=== PATIENT | male | born 1965 | race Caucasian/White ===

== ENCOUNTER 2019-05-12 23:30 | Emergency (ER) | payer MEDICARE, MEDICAID ==
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
[2019-05-13 03:50] VITALS: BP 144/85
[2019-05-13 04:11] VITALS: PULSE 100
== END 2019-05-13 00:45 ==
LOC: VM.ED 23:30
DX: R10.32 Left lower quadrant pain (principal); F32.9 Major depressive disorder, single episode, unspecified; Z79.899 Other long term (current) drug therapy; Z88.0 Allergy status to penicillin; Z88.8 Allergy status to other drugs, medicaments and biological substances
CPT/HCPCS: 81002; 99284-GF; 99285

== ENCOUNTER 2020-02-25 17:40 | Inpatient (IN) | payer MEDICARE, MEDICAID ==
--- NOTE | 2020-02-25 18:19 | EDM.PDOC ---
<Dwight Rivero W - Last Filed: 02/25/20 18:12> ED HPI GENERAL MEDICAL PROBLEM - General Chief Complaint: General Time Seen by Provider: 02/25/20 17:40 Source of Information: Reports: Patient History Limitations: Reports: No Limitations - History of Present Illness INITIAL COMMENTS - FREE TEXT/NARRATIVE: Pt. presents to ER via EMS. He is a resident at [facility] and is currently diagnosed with covid 19 on 02/20/2020 and has been on dexamethasone since that time. Staff states that the patient has gradually become more lethargic and weak since diagnosis. Today, patient was noted to have a HR of 142 and temp of 102.2. Resp rate was 40 and he was maintaining O2 sats of around 96% on O2 per NC at 2L/min. 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 He will nod affirmatively and negatively when asked questions. Pt. is a code 2. Onset Date: 02/20/20 Location: Reports: Generalized - Related Data Allergies Allergy/AdvReac Type Severity Reaction Status Date / Time Penicillins Allergy Cannot Verified 02/25/20 19:32 Remember phenytoin sodium Allergy Cannot Verified 02/25/20 19:32 [From Dilantin] Remember phenytoin sodium extended Allergy Cannot Verified 02/25/20 19:32 [From Dilantin] Remember Home Meds: Home Meds Beta-Carotene(A) w/C & E/Min [Prosight] 1 tab PO DAILY 09/14/13 [History] Desmopressin 0.3 mg PO DAILY 09/14/13 [History] Desmopressin 0.7 tab PO BEDTIME 09/14/13 [History] Docusate Sodium [Colace] 2 tab PO BEDTIME 09/14/13 [History] Melatonin 5 mg PO BEDTIME 09/14/13 [History] bisacodyL [Dulcolax] 5 mg PO DAILY PRN 04/12/14 [History] Bisacodyl [Dulcolax] 10 mg RECTAL DAILY PRN 03/16/16 [History] Memantine HCl [Namenda Xr] 28 mg PO DAILY 03/16/16 [History] Acetaminophen 650 mg PO Q4H PRN 02/25/20 [History] Albuterol/Ipratropium [DuoNeb 3.0-0.5 MG/3 ML] 3 ml INH Q3H PRN 02/25/20 [History] Apixaban [Eliquis] 1 tab PO BID 02/25/20 [History] Ascorbic Acid [Vitamin C] 1,000 mg PO BID 02/25/20 [History] Cholecalciferol (Vitamin D3) [Vitamin D] 1,000 unit PO DAILY 02/25/20 [History] dexAMETHasone [Dexamethasone] 6 mg PO DAILY 02/25/20 [History] polyethylene glycoL 3350 [MiraLAX] 17 gm PO DAILY 02/25/20 [History] Past Medical History HEENT History: Reports: Sinusitis, Other (See Below) 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 significant presenile demenia in addition to cognitive dysfunction Psychiatric History: Reports: Depression Endocrine/Metabolic History: Reports: Obesity/BMI 30+, Other (See Below) Other Endocrine/Metabolic History: diabetes insipidus Hematologic History: Reports: Other (See Below) Other Hematologic History: hyponatemia - Past Surgical History Musculoskeletal Surgical History: Reports: Other (See Below) Social & Family History - Living Situation & Occupation Living situation: Reports: Extended Care Facility ED ROS GENERAL - Review of Systems Review Of Systems: See Below Reason Not Obtained: largely unobtainable due to TBI. Constitutional: Reports: No Symptoms HEENT: Reports: No Symptoms Respiratory: Reports: Shortness of Breath, Cough Cardiovascular: Reports: No Symptoms ED EXAM, GENERAL - Physical Exam Exam: See Below Exam Limited By: No Limitations General Appearance: Alert, WD/WN, No Apparent Distress Throat/Mouth: Normal Inspection, Normal Lips, No Airway Compromise Departure - Departure Disposition: Refer to Observation Clinical Impression: COVID-19, Hypoxia, ARIANNA (acute kidney injury), Dehydration, Hypernatremia - Discharge Information <Corbin Garzon - Last Filed: 02/25/20 21:24> Course - Vital Signs Last Recorded V/S: Last Vital Signs Temp 98.8 F 02/25/20 20:28 Pulse 106 H 02/25/20 20:28 Resp 20 02/25/20 20:28 BP 113/54 L 02/25/20 20:28 Pulse Ox 96 02/25/20 20:28 - Orders/Labs/Meds Orders: Active Orders 24 hr Category Date Time Status CULTURE BLOOD [BC] Stat Lab 02/25/20 17:56 Received CULTURE BLOOD [BC] Stat Lab 02/25/20 18:10 Results PROCALCITONIN [REF] Stat Lab 02/25/20 17:56 Received Sodium Chloride 0.9% [Saline Flush] Med 02/25/20 17:53 Active 10 ml FLUSH ASDIRECTED PRN Blood Culture x2 Reflex Set [OM.PC] Stat Oth 02/25/20 17:54 Ordered Peripheral IV Insertion Adult [OM.PC] Routine Oth 02/25/20 17:54 Ordered Medication Orders Acetaminophen (Tylenol) 650 mg PO Q4H PRN PRN Reason: Pain (Mild 1-3)/fever Albuterol/Ipratropium (Duoneb 3.0-0.5 Mg/3 Ml) 3 ml NEB Q4H PRN PRN Reason: dyspnea/wheezing Albuterol/Ipratropium (Duoneb 3.0-0.5 Mg/3 Ml) 3 ml INH Q3H PRN PRN Reason: Shortness of Breath Apixaban (Eliquis) 2.5 mg PO BID GIN Bisacodyl (Dulcolax) 5 mg PO DAILY PRN PRN Reason: Constipation Bisacodyl (Dulcolax) 10 mg RECTAL DAILY PRN PRN Reason: Constipation Ceftriaxone Sodium (Rocephin) 1 gm IVPUSH Q24H GIN Cholecalciferol (Vitamin D3) 100 mcg PO DAILY GIN Desmopressin Acetate (Desmopressin) 0.3 mg PO DAILY GIN Desmopressin Acetate (Desmopressin) 0.7 mg PO BEDTIME GIN Dexamethasone (Dexamethasone) 6 mg PO DAILY GIN Docusate Sodium (Colace) 200 mg PO BEDTIME GIN Lactated Ringer's (Ringers, Lactated) 1,000 mls @ 150 mls/hr IV ASDIRECTED GIN Last Admin: 02/25/20 21:00 Dose: 150 mls/hr Documented by: KANNAN Remdesivir 200 mg/ Sodium (Chloride) 250 mls @ 250 mls/hr IV ONETIME ONE Stop: 02/25/20 22:59 Remdesivir 100 mg/ Sodium (Chloride) 100 mls @ 100 mls/hr IV Q24H GIN Stop: 02/29/20 22:59 Azithromycin 500 mg/ Sodium (Chloride) 250 mls @ 250 mls/hr IV Q24H GIN Multivitamins/Minerals (Prosight) 1 tab PO DAILY GIN Non-Formulary Medication (Melatonin [Melatonin]) 5 mg PO BEDTIME GIN Non-Formulary Medication (Memantine Hcl [Namenda Xr]) 28 mg PO DAILY GIN Polyethylene Glycol (Miralax) 17 gm PO DAILY [facility] Sodium Chloride (Saline Flush) 10 ml FLUSH ASDIRECTED PRN PRN Reason: Keep Vein Open Last Admin: 02/25/20 21:00 Dose: 10 ml Documented by: KANNAN Zinc Gluconate (Zinc) 50 mg PO DAILY [facility] Labs: Laboratory Tests 02/25/20 02/25/20 02/25/20 Range/Units 17:56 17:56 17:56 WBC 10.9 H (4.0-10.0) x10^3/uL RBC 6.03 H (4.5-6.0) x10^6/uL Hgb 17.1 D (14.0-18.0) g/dL Hct 54.1 H (40.0-52.0) % MCV 89.7 D (78.0-93.0) fL MCH 28.4 (26.0-32.0) pg MCHC 31.6 L (32.0-36.0) g/dL RDW Coeff of Efrain 17.9 H (10.0-15.0) % Plt Count 291 D (130-400) x10^3/uL Add Manual Diff Yes Neutrophils % (Manual) 64 (50-80) % Band Neutrophils % 1 (0-6) % Lymphocytes % (Manual) 12 L (25-50) % Monocytes % (Manual) 22 H (2-11) % Eosinophils % (Manual) 1 (0-4) % Platelet Estimate Adequate Anisocytosis 2+ moderate H PT 13.5 H (9.5-12.3) SEC INR 1.3 L (2.0-3.5) Sodium 160 H (136-145) mmol/L Potassium 4.6 (3.5-5.1) mmol/L Chloride 123 H (98-107) mmol/L Carbon Dioxide 27 (21-32) mmol/L Anion Gap 14.6 (10-20) mmol/L BUN 68 H D (7-18) mg/dL Creatinine 1.6 H (0.70-1.30) mg/dL Est Cr Clr Drug Dosing TNP Estimated GFR (MDRD) 45 Glucose 116 H (74-106) mg/dL Lactic Acid (0.4-2.0) mmol/L Calcium 8.8 (8.5-10.1) mg/dL Corrected Calcium 9.36 (8.5-10.1) mg/dL Ferritin (26-388) ng/mL Total Bilirubin 0.9 (0.2-1.0) mg/dL AST 87 H (15-37) U/L ALT 51 (16-63) U/L Alkaline Phosphatase 53 (46-116) U/L C-Reactive Protein 0.6 (<=0.9) mg/dL Total Protein 8.1 (6.4-8.2) g/dL Albumin 3.3 L (3.4-5.0) g/dL Globulin 4.8 Albumin/Globulin Ratio 0.69 TSH, Ultra Sensitive 3.033 (0.358-3.74) uIU/mL Urine Color (YELLOW) Urine Appearance (CLEAR) Urine pH (5.0-8.0) Ur Specific Zullinger Urine Protein (NEGATIVE) mg/dL Urine Glucose (UA) (NEGATIVE) mg/dL Urine Ketones (NEGATIVE) mg/dL Urine Occult Blood (NEGATIVE) Urine Nitrite (NEGATIVE) Urine Bilirubin (NEGATIVE) Urine Urobilinogen (0.2) EU/dL Ur Leukocyte Esterase (NEGATIVE) Urine RBC (NOT SEEN) /HPF Urine WBC (NOT SEEN) /HPF Ur Squamous Epith Cells (NEGATIVE) /HPF Amorphous Sediment Urine Bacteria (NEGATIVE) /HPF Urine Mucus (NEGATIVE) /LPF 02/25/20 02/25/20 02/25/20 Range/Units 17:56 17:56 18:13 WBC (4.0-10.0) x10^3/uL RBC (4.5-6.0) x10^6/uL Hgb (14.0-18.0) g/dL Hct (40.0-52.0) % MCV (78.0-93.0) fL MCH (26.0-32.0) pg MCHC (32.0-36.0) g/dL RDW Coeff of Efrain (10.0-15.0) % Plt Count (130-400) x10^3/uL Add Manual Diff Neutrophils % (Manual) (50-80) % Band Neutrophils % (0-6) % Lymphocytes % (Manual) (25-50) % Monocytes % (Manual) (2-11) % Eosinophils % (Manual) (0-4) % Platelet Estimate Anisocytosis PT (9.5-12.3) SEC INR (2.0-3.5) Sodium (136-145) mmol/L Potassium (3.5-5.1) mmol/L Chloride (98-107) mmol/L Carbon Dioxide (21-32) mmol/L Anion Gap (10-20) mmol/L BUN (7-18) mg/dL Creatinine (0.70-1.30) mg/dL Est Cr Clr Drug Dosing Estimated GFR (MDRD) Glucose (74-106) mg/dL Lactic Acid 2.0 (0.4-2.0) mmol/L Calcium (8.5-10.1) mg/dL Corrected Calcium (8.5-10.1) mg/dL Ferritin 402 H (26-388) ng/mL Total Bilirubin (0.2-1.0) mg/dL AST (15-37) U/L ALT (16-63) U/L Alkaline Phosphatase (46-116) U/L C-Reactive Protein (<=0.9) mg/dL Total Protein (6.4-8.2) g/dL Albumin (3.4-5.0) g/dL Globulin Albumin/Globulin Ratio TSH, Ultra Sensitive (0.358-3.74) uIU/mL Urine Color Dark yellow H (YELLOW) Urine Appearance Slightly cloudy H (CLEAR) Urine pH 5.5 (5.0-8.0) Ur Specific Zullinger >=1.030 Urine Protein >=300 H (NEGATIVE) mg/dL Urine Glucose (UA) Negative (NEGATIVE) mg/dL Urine Ketones Negative (NEGATIVE) mg/dL Urine Occult Blood Moderate H (NEGATIVE) Urine Nitrite Negative (NEGATIVE) Urine Bilirubin Negative (NEGATIVE) Urine Urobilinogen 1.0 (0.2) EU/dL Ur Leukocyte Esterase Negative (NEGATIVE) Urine RBC 20-30 H (NOT SEEN) /HPF Urine WBC 0-5 (NOT SEEN) /HPF Ur Squamous Epith Cells Not seen (NEGATIVE) /HPF Amorphous Sediment Few Urine Bacteria Occasional H (NEGATIVE) /HPF Urine Mucus Occasional H (NEGATIVE) /LPF Meds: Medications Generic Name Dose Route Start Last Admin Trade Name Freq PRN Reason Stop Dose Admin Acetaminophen 650 mg 02/25/20 20:28 Tylenol PO Q4H PRN Pain (Mild 1-3)/fever Albuterol/Ipratropium 3 ml 02/25/20 20:28 Duoneb 3.0-0.5 Mg/3 Ml NEB Q4H PRN dyspnea/wheezing Albuterol/Ipratropium 3 ml 02/25/20 20:49 Duoneb 3.0-0.5 Mg/3 Ml INH Q3H PRN Shortness of Breath Apixaban 2.5 mg 02/26/20 08:00 Eliquis PO BID GIN Bisacodyl 5 mg 02/25/20 20:49 Dulcolax PO DAILY PRN Constipation Bisacodyl 10 mg 02/25/20 20:49 Dulcolax RECTAL DAILY PRN Constipation Ceftriaxone Sodium 1 gm 02/26/20 20:00 Rocephin IVPUSH Q24H GIN Cholecalciferol 100 mcg 02/26/20 08:00 Vitamin D3 PO DAILY GIN Desmopressin Acetate 0.3 mg 02/26/20 08:00 Desmopressin PO DAILY GIN Desmopressin Acetate 0.7 mg 02/26/20 20:00 Desmopressin PO BEDTIME GIN Dexamethasone 6 mg 02/26/20 08:00 Dexamethasone PO DAILY GIN Docusate Sodium 200 mg 02/26/20 20:00 Colace PO BEDTIME GIN Lactated Ringer's 1,000 mls @ 150 mls/hr 02/25/20 20:45 02/25/20 21:00 Ringers, Lactated IV 150 mls/hr ASDIRECTED GIN Administration Remdesivir 200 mg/ Sodium 250 mls @ 250 mls/hr 02/25/20 22:00 Chloride IV 02/25/20 22:59 ONETIME ONE Remdesivir 100 mg/ Sodium 100 mls @ 100 mls/hr 02/26/20 22:00 Chloride IV 02/29/20 22:59 Q24H GIN Azithromycin 500 mg/ Sodium 250 mls @ 250 mls/hr 02/26/20 20:00 Chloride IV Q24H GIN Multivitamins/Minerals 1 tab 02/26/20 08:00 Prosight PO DAILY GIN Non-Formulary Medication 5 mg 02/26/20 20:00 Melatonin [Melatonin] PO BEDTIME GIN Non-Formulary Medication 28 mg 02/26/20 08:00 Memantine Hcl [Namenda Xr] PO DAILY IGN Polyethylene Glycol 17 gm 02/26/20 08:00 Miralax PO DAILY GIN Sodium Chloride 10 ml 02/25/20 17:53 02/25/20 21:00 Saline Flush FLUSH 10 ml ASDIRECTED PRN Administration Keep Vein Open Zinc Gluconate 50 mg 02/26/20 08:00 Zinc PO DAILY GIN Discontinued Medications Generic Name Dose Route Start Last Admin Trade Name Freq PRN Reason Stop Dose Admin Ceftriaxone Sodium 2 gm 02/25/20 18:44 02/25/20 19:14 Rocephin IVPUSH 02/25/20 18:45 2 gm STAT ONE Administration Azithromycin 500 mg/ Sodium 250 mls @ 250 mls/hr 02/25/20 18:45 02/25/20 19:14 Chloride IV 02/25/20 19:44 250 mls/hr STAT ONE Administration Sodium Chloride 1,000 mls @ 1,000 mls/hr 02/25/20 19:07 02/25/20 17:50 Normal Saline IV 02/25/20 20:06 1,000 mls/hr .BOLUS ONE Administration - Radiology Interpretation Free Text/Narrative:: Chest x-ray per radiology shows possible early scattered bilateral infiltrates. Mild cardiomegaly without evidence of edema. No effusions. - Re-Assessments/Exams Free Text/Narrative Re-Assessment/Exam: 02/25/20 20:13 Assumed care of this patient at shift change at 1900 hrs. His chest x-ray is concerning for the development of bilateral infiltrates. Blood cultures are pending. He is requiring 3 L of oxygen per nasal cannula which is not chronic for him. He was given a dose of Rocephin and azithromycin in the emergency department. His sodium is elevated at 160 and he has an elevation of his creatinine of 1.6 with a BUN of 68. His oral mucosa is quite dry. I think with his traumatic brain injury and his presence of Covid that he has not been taking good fluids. I do not feel that sending him back to the group home at this time is appropriate with the increasing oxygen demands and the worsening chest x-ray and the concern for most likely a secondary bacterial infection. I did talk with the patient's sister as well about my concern and she agrees. I also think with the increasing oxygen demands that he does meet criteria for remdesivir administration in the hospital. This is a 5-day course so I called and spoke with Dr. Allen about inpatient management of this patient with my concerns of ARIANNA COVID requiring oxygen and Remdisivir she feels that obs is appropriate at this time and contact his PCP in the morning about possibly switching to inpatient. I discussed this with the patient daughter and she is comfortable with this plan. I will talk with his PCP in the morning DR. Lauren about assuming care of the patient. I did discuss with the patient's sister about the administration of remdesivir. I spoke with the sister Charisse Schaeffer and provided information about remdesivir treatment for Rojas Kent. Offered them the patient and caregiver SAM [email or web address] factually to read and review which is she is not here I gave her guidance on line to find this as a reference for her at home. I stated that the drug is been approved by an emergency use authorization process and has not been fully FDA reviewed or approved. Patient meets the EUA requirements. I shared that the drug may cause liver abnormalities and infusion related side effects. Additionally other side effects are possible but not known as the drug has limited studies. I discussed there are other potential treatment options that are currently not FDA approved to treat COVID-19. I offered opportunity to ask questions and all questions were answered. Charisse Schaeffer verbally voiced an understanding and agreement to proceed with the treatment for Rojas Kent. Departure - Departure Time of Disposition: 20:30 Sepsis Event Note (ED) - Focused Exam Vital Signs: Vital Signs Temp Pulse Resp BP Pulse Ox 02/25/20 17:40 99.6 F 122 H 24 H 126/84 98 - Problem List & Annotations (1) ARIANNA (acute kidney injury) SNOMED Code(s): 31603935, 42969687 Code(s): N17.9 - ACUTE KIDNEY FAILURE, UNSPECIFIED Status: Acute Current Visit: Yes (2) COVID-19 SNOMED Code(s): 983440959 Code(s): U07.1 - COVID-19 Status: Acute Current Visit: Yes (3) Dehydration SNOMED Code(s): 50252884 Code(s): E86.0 - DEHYDRATION Status: Acute Current Visit: Yes (4) Hypernatremia SNOMED Code(s): 863767483 Code(s): E87.0 - HYPEROSMOLALITY AND HYPERNATREMIA Status: Acute Current Visit: Yes (5) Hypoxia SNOMED Code(s): 027551572 Code(s): R09.02 - HYPOXEMIA Status: Acute Current Visit: Yes (6) Pneumonia SNOMED Code(s): 000219559 Code(s): J18.9 - PNEUMONIA, UNSPECIFIED ORGANISM Status: Acute Current Visit: No Qualifiers: Pneumonia type: due to unspecified organism Laterality: right Lung location: unspecified part of lung Qualified Code(s): J18.9 - Pneumonia, unspecified organism - My Orders Last 24 Hours: My Active Orders 02/25/20 17:56 PROCALCITONIN [REF] Stat - Assessment/Plan Last 24 Hours: My Active Orders 02/25/20 17:56 PROCALCITONIN [REF] Stat Assessment:: A/P Admit observation at this time. Will speak with Dr. Rodolfo Todd in the morning about assuming care of the patient as he will need a total of 5 doses of remdesivir. 1: Covid-19 Diagnosis on 02/13/20. Requiring 3 liters of oxygen to keep sats above 92%. Remdesivir protocol. Strict isolation. Continue the dexamethasone 6mg po qd as previous for a total of 10 days. DUo-neb prn. daily labs to include ferritin and CMP for following of liver enzymes and LDH. EUA approval for Remdesivir completed in the ER with discussion with the sister Charisse Schaeffer. Vit c 1000 daily. Increase his VIt D to 4000units daily and add zinc 50mg daily. 2: Secondary Pneumonia ? on CXR. Azithromycin 500mg IVPB qd, ceftriaxone 1 gram qd. Procalcitonin pending. Daily lactic acid as well as CBC. Blood cultures pending x2. Dexamethasone as above. 3: Hypoxia from #1 and #2. Oxygen Duo-nebs Azithro and Ceftriaxone Remdesivir as well. 4: ARIANNA most likely from dehydration and poor oral intake during this episode of COVID 19. liter of fluids given in the ED and will hydrate with LR at 150mls/hr over night. I/Os daily labs. 5: Hypernatremia most likely from dehydration. LR 150mls/hr daily labs. He does have a history of hyperosmolality and hypernatremia for which he is on desmopressin on chronically which we will continue at this time but his sodium is quite a bit higher than chronically documented. 6: Dehydration as above with fluids. Continue home meds for Hyperosmolality hypernatremia major depressive disorder, sleep disorder, dementia. VTE: Chronically on Eliquis 2.5mg po bid will continue. TEDs as well added. Sepsis. blood cultures pending. ? secondary pneumonia ceftri and azithro. daily labs with CBC and lactic acid procalcitonin pending. Code level 2.
--- NOTE | 2020-02-25 18:36 | CR ---
[id number] RAD/RAD Chest PA or AP 1V EXAM: FRONTAL CHEST INDICATION: RESPIRATORY DISTRESS,+ COVID 19 COMPARISON: May 28, 2015. DISCUSSION: Evaluation is mildly limited by hypoinflation. Early mild bilateral infiltrates are suggested. Mild cardiomegaly without evidence of edema. No effusions. IMPRESSION: 1. Possible early scattered bilateral infiltrates. Noam Curry MD 02/25/20 [id number] Thank you for allowing us to participate in the care of your patient.
[2020-02-25 18:44] LABS: CHLORIDE,CL 123 mmol/L (98-107); SODIUM,NA 160 mmol/L (136-145)
[2020-02-25] MEDS ORDERED: cefTRIAXone 2 GM Vial IVPUSH ONE (18:44)
[2020-02-25] MEDS ORDERED: Azithromycin 500 MG in Sodium Chloride 0.9% 250 ML IV ONE (18:45)
[2020-02-25 18:46] LABS: ANION GAP 14.6 mmol/L (10-20)
[2020-02-25] MEDS ORDERED: Sodium Chloride 0.9% 1,000 ML IV ONE (19:07)
[2020-02-25] MEDS ORDERED: Albuterol/Ipratropium 3.0-0.5 MG/3 ML Neb Soln NEB PRN (20:28)
[2020-02-25] MEDS ORDERED: Bisacodyl 10 MG Supp RECTAL PRN (20:49)
[2020-02-25] MEDS ORDERED: Bisacodyl 5 MG Tab PO PRN (20:49)
[2020-02-25] MEDS: Sodium Chloride 0.9% 10 ML Syringe FLUSH PRN (21:00)
[2020-02-25] MEDS: Lactated Ringers 1,000 ML IV SCH (21:00)
[2020-02-25] MEDS ORDERED: REMDESIVIR 200 MG in Sodium Chloride 0.9% 250 ML IV ONE (22:00)
[2020-02-26] MEDS: REMDESIVIR 100 MG in Sodium Chloride 0.9% 250 ML IV ONE ×2 (00:04→00:05)
[2020-02-26] MEDS: Acetaminophen 325 MG Tab PO PRN ×4 (01:09→22:07)
[2020-02-26] MEDS: Sodium Chloride 0.9% 10 ML Syringe FLUSH PRN (01:12)
[2020-02-26] MEDS: Lactated Ringers 1,000 ML IV SCH (04:38)
[2020-02-26] MEDS: Albuterol/Ipratropium 3.0-0.5 MG/3 ML Neb Soln INH PRN (05:27)
[2020-02-26] MEDS ORDERED: Ketorolac 30 MG/ML SDV IVPUSH ONE (06:25)
[2020-02-26 07:42] LABS: CHLORIDE,CL 125 mmol/L (98-107)
[2020-02-26 07:56] LABS: ANION GAP 16.5 mmol/L (10-20); SODIUM,NA 161 mmol/L (136-145)
[2020-02-26] MEDS ORDERED: Cholecalciferol (Vitamin D3) 25 MCG Tab PO SCH (08:00)
[2020-02-26] MEDS ORDERED: Dexamethasone 4 MG Tab PO SCH (08:00)
[2020-02-26] MEDS ORDERED: Zinc (Zinc Gluconate) 50 MG Tab PO SCH (08:00)
[2020-02-26] MEDS: Polyethylene Glycol 3350 Powder 17 GM Packet PO SCH (09:33)
[2020-02-26] MEDS: Apixaban 2.5 MG Tab PO SCH ×2 (09:35→19:56)
[2020-02-26] MEDS: dexAMETHasone 2 MG, dexAMETHasone 4 MG PO SCH ×2 (09:35)
[2020-02-26] MEDS: Desmopressin 0.2 MG Tab PO SCH ×2 (09:35→19:55)
[2020-02-26] MEDS: Beta-Carotene (Vitamin A) w/Vitamin C & E plus Minerals Tab PO SCH (09:36)
[2020-02-26] MEDS: Memantine 10 MG Tab PO SCH ×2 (09:36→19:55)
[2020-02-26] MEDS: Dextrose 5% in Water 1,000 ML IV SCH ×2 (10:40→18:43)
[2020-02-26] MEDS ORDERED: Potassium Chloride 10 MEQ Tab.ER PO ONE (13:23)
[2020-02-26] MEDS: Ascorbic Acid 500 MG Tab PO SCH ×2 (14:03→19:55)
[2020-02-26] MEDS: Cholecalciferol (Vitamin D3) 25 MCG Tab PO SCH (14:03)
[2020-02-26] MEDS: Zinc (Zinc Gluconate) 50 MG Tab PO SCH (14:04)
--- NOTE | 2020-02-26 14:34 | PN ---
Progress Note for EMILIO BRITT Date: 02/26/2020 Room #: VM.206 SUBJECTIVE: 54-year-old admitted last night on observation for COVID-19 infection, diagnosis date was 02/17, but had symptoms prior. The patient has a history of head injury when he was in his teens. He has had to take DDAVP and had problems with hypernatremia. His sodium on admit was 160, it is up to 161 today. It appears he did not get his bedtime dose of desmopressin. He also was started on Remdesivir and he has already been started on dexamethasone since 02/17. He did spike fevers overnight even up to 103 per ER report. He is 101.4 at 10:40 a.m. this morning. He did get a dose of IV Toradol despite his creatinine being 1.6 on admission and improved to 1.2 with the lactated Ringer IV fluids 1.7 L intake. He is incontinent of urine, so we are unaware of output. His O2 sats have been in the 90s on 3 to 5 L. He is not coughing. He answers a few questions with yes, but is mostly more withdrawn. He ate 50% of his breakfast. He denied any pain. OBJECTIVE: Vital Signs: His temperature again at the time of dictation 101.4. His pulse is 130, but when he has been afebrile, his pulse had been down around 106. His blood pressure 135/95, respiratory rate 20, and O2 of 95% on 3 L. General: He is in no acute distress. Heart: Regular rate and rhythm with tachycardia. Lungs: Lung sounds are decreased with poor respiratory effort, but no wheezing. No crackles, but some scattered rhonchi. Abdomen: Positive bowel sounds. Soft, nondistended, nontender. Extremities: Warm and dry. No edema. Mental Status: He is not able to answer those questions. LABORATORY DATA: White count 13.2, hemoglobin 15.7, platelets 233, 75% bands. INR yesterday 1.3. He is on Eliquis for history of DVTs. Sodium 161, potassium 3.5, chloride 125, bicarb 23. BUN 52, down from 68, creatinine 1.2. Glucose 126. Lactic 2.2, up slightly. Calcium 8.3, ferritin 441. AST 75, down from 87. ALT normal 45. Alkaline phosphatase normal 46. LDH 335. Albumin 3.0. Procalcitonin was negative. X-rays showed possible early bilateral infiltrates. ASSESSMENT AND PLAN: 1. COVID-19 infections since 02/20/2020. He is on dexamethasone. We will complete a full 10-day course on the of 6 mg daily. He is requiring oxygen. We will continue to monitor. He will also complete a 5-day course of remdesivir and he will continue on vitamins. 2. Hypernatremia, severe with history of diabetes insipidus. He got his DDAVP this morning. We will repeat a sodium this afternoon and re-dose DDAVP. He will also get his bedtime dose. 3. History of traumatic brain injury with dementia. Continue home medications. 4. History of DVT. Continue his regular anticoagulation. 5. Acute renal failure due to dehydration. His creatinine has improved down to 1.2. We will continue to monitor. I will also place a Mena for strict in's and out's. 6. Mildly elevated LFTs, probably due to viral illness. We will continue daily monitoring due to the Remdesivir. 7. Mild microscopic hematuria. We will place the Mena and see if he has further problems. He is on anticoagulation. 8. Concern for community-acquired pneumonia. We will stop his IV antibiotics as his procalcitonin was negative. He did get the Rocephin and Zithromax last night. He is having continued fevers. We will repeat a chest x-ray if needed. I would hold off on further Toradol. I think 1 dose is fine. The patient will continue on acute cares with IV fluids, will be switched over to D5 water, per calculation 150 an hour for hypernatremia. We will repeat lab work this afternoon for close monitoring of that. MKA: 02/26/2020 13:26:36 MODL: 02/26/2020 14:13:27 /[id number] EVANGELINA
[2020-02-26] MEDS ORDERED: Lactated Ringers 500 ML IV ONE (15:00)
[2020-02-26] MEDS ORDERED: Desmopressin 0.2 MG Tab PO ONE (16:11)
[2020-02-26] MEDS: Docusate Sodium 100 MG Cap PO SCH (19:55)
[2020-02-26] MEDS: Melatonin 3 MG Tab PO SCH (19:55)
[2020-02-26] MEDS: atorvaSTATin 40 MG Tab PO SCH (19:56)
[2020-02-26] MEDS ORDERED: cefTRIAXone 1 GM Vial IVPUSH SCH (20:00)
[2020-02-26] MEDS ORDERED: Azithromycin 500 MG in Sodium Chloride 0.9% 250 ML IV SCH (20:00)
[2020-02-26] MEDS: REMDESIVIR 100 MG in Sodium Chloride 0.9% 100 ML IV SCH (22:06)
[2020-02-27] MEDS: Dextrose 5% in Water 1,000 ML IV SCH (03:35)
[2020-02-27] MEDS: Acetaminophen 325 MG Tab PO PRN ×3 (06:09→14:22)
[2020-02-27 07:46] LABS: ANION GAP 14.4 mmol/L (10-20)
[2020-02-27] MEDS: Ascorbic Acid 500 MG Tab PO SCH ×2 (07:56→20:07)
[2020-02-27] MEDS: Polyethylene Glycol 3350 Powder 17 GM Packet PO SCH (07:56)
[2020-02-27] MEDS: Desmopressin 0.2 MG Tab PO SCH ×2 (07:56→20:09)
[2020-02-27] MEDS: Beta-Carotene (Vitamin A) w/Vitamin C & E plus Minerals Tab PO SCH (07:56)
[2020-02-27] MEDS: Zinc (Zinc Gluconate) 50 MG Tab PO SCH (07:56)
[2020-02-27] MEDS: Cholecalciferol (Vitamin D3) 25 MCG Tab PO SCH (07:57)
[2020-02-27] MEDS: dexAMETHasone 2 MG, dexAMETHasone 4 MG PO SCH ×2 (07:57)
[2020-02-27] MEDS: Memantine 10 MG Tab PO SCH ×2 (07:57→20:06)
[2020-02-27] MEDS: Apixaban 2.5 MG Tab PO SCH ×2 (07:57→20:05)
[2020-02-27] MEDS ORDERED: Lactated Ringers 500 ML IV ONE (15:08)
[2020-02-27] MEDS ORDERED: Potassium Chloride 10 MEQ Tab.ER PO ONE (15:13)
--- NOTE | 2020-02-27 15:41 | PN ---
Progress Note for EMILIO BRITT Date: 02/27/2020 Room #: VM.209 SUBJECTIVE: This is hospital day #3 on a 54-year-old admitted with COVID-19 infection. His date of diagnosis was 02/17, but had symptoms prior. The patient continues to spike fever today despite Tylenol. This afternoon, his temperature is up to 103. He did though eat 75% of breakfast and 100% of lunch. He has had quite an intake of fluids with IVs, but only 600 so far charted out. He does not appear to be short of breath or in any respiratory distress, still requiring 5 L. He has been on dexamethasone. He has been on remdesivir. Antibiotics were discontinued because his procalcitonin was normal. He is not answering many questions today. He appears flushed. He did make good eye contact though. He denied any pain. He did not grimace when I was doing his abdominal exam. He has not vomited. No bowel movements recorded. OBJECTIVE: Vital Signs: His temperature this morning was 99.6, T-max 103 at the time of this dictation; pulse 133, blood pressure 117/79, respiratory rate 32, and O2 of 93% on 5 L. General: He is in no acute distress. Heart: Regular rate and rhythm. S1 and S2 without murmur. Lungs: Lung sounds are decreased with poor effort, but no crackles or wheezes. Abdomen: Positive bowel sounds. Soft, nondistended, and nontender. Extremities: Warm and dry. No edema. Mental Status: He is alert and able to make eye contact, but not answering questions. LABORATORY DATA: White count 9.4, hemoglobin 14.8, and platelets 165. INR 1.3 on admission. He has been on Eliquis. Platelets are 165. Sodium 153, potassium 3.4, chloride 118, bicarbonate 24, BUN 48, and creatinine 1.3. Lactic 2.8, down from yesterday. Glucose 166. Ferritin up from 400 to 926. AST 88, ALT 42, alkaline phosphatase 34, LDH 389, and albumin 2.7. ASSESSMENT: 1. Coronavirus disease-19 infection, day #9 since his positive test. We will continue remdesivir. He is due to stop dexamethasone tomorrow, but if continued fevers, I would continue it. I will give a 500 mL bolus of LR now to help with fevers. We will continue the vitamins. We will repeat lab work tomorrow. 2. Hypernatremia, severe. He is on his DDAVP. His sodium has come down nicely to 153. I am going to discontinue the D5W. 3. Lactic acidosis. No bacterial infection has been found. Blood cultures have shown no growth. 4. Acute hypoxic respiratory failure secondary to coronavirus disease-19. His oxygen requirements have remained stable. We will repeat a chest x-ray if this worsens. 5. 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 6. History of deep venous thrombosis. He is anticoagulated. 7. Acute renal failure due to the dehydration from acute illness, resolved. We will monitor kidney function closely. 8. Mildly elevated LFTs. We will continue to monitor. 9. Microscopic hematuria. This could be why his urine is darker in the Mena. We will continue to monitor strict in's and out's. We will consider outpatient workup. 10.Concern for community-acquired pneumonia. We will repeat a procalcitonin, but at this point, white count is normal. We have not decided to restart antibiotics. We will continue to monitor the lactic acid. PLAN: The patient will continue acute cares. We will give him 500 mL of cold saline. We will continue Tylenol for fever control. We will monitor lab work. We will continue remdesivir for a 5-day course and dexamethasone for at least a 10-day course. Chest x-ray today. MKA: 02/27/2020 15:16:19 MODL: 02/27/2020 15:33:24 /[id number] EVANGELINA
[2020-02-27] MEDS ORDERED: Acetaminophen 325 MG Tab PO PRN (16:29)
--- NOTE | 2020-02-27 18:26 | CR ---
[id number] RAD/RAD Chest PA or AP 1V EXAM: SINGLE VIEW CHEST. INDICATION: HYPOXIA COMPARISON: CORRELATION IS MADE WITH FEBRUARY 25, 2020 FINDINGS: The lungs are clear The cardiac silhouette is stable IMPRESSION: STABLE CHEST Dale Horton MD 02/27/20 [id number] Thank you for allowing us to participate in the care of your patient.
[2020-02-27] MEDS: atorvaSTATin 40 MG Tab PO SCH (20:05)
[2020-02-27] MEDS: Melatonin 3 MG Tab PO SCH (20:05)
[2020-02-27] MEDS: Docusate Sodium 100 MG Cap PO SCH (20:06)
[2020-02-27] MEDS: REMDESIVIR 100 MG in Sodium Chloride 0.9% 100 ML IV SCH (21:50)
[2020-02-28 07:45] LABS: ANION GAP 15.7 mmol/L (10-20)
[2020-02-28] MEDS ORDERED: methylPREDNISolone Sodium Succinate 40 MG/1 ML SDV IVPUSH ONE (08:43)
[2020-02-28] MEDS: Albuterol/Ipratropium 3.0-0.5 MG/3 ML Neb Soln INH PRN ×2 (09:00→14:16)
[2020-02-28] MEDS: cefTRIAXone 1 GM Vial IVPUSH SCH (09:40)
[2020-02-28] MEDS: Clindamycin Phosphate in D5W 600 MG in Premix Bag 1 BAG IV SCH ×4 (09:40→17:10)
[2020-02-28] MEDS: Lactated Ringers 1,000 ML IV SCH ×3 (09:40→21:06)
[2020-02-28] MEDS: Acetaminophen 500 MG Tab PO PRN ×3 (09:41→21:42)
[2020-02-28] MEDS: Desmopressin 0.2 MG Tab PO SCH ×2 (14:16→21:00)
[2020-02-28] MEDS: Zinc (Zinc Gluconate) 50 MG Tab PO SCH (14:17)
[2020-02-28] MEDS: dexAMETHasone 2 MG, dexAMETHasone 4 MG PO SCH ×2 (14:17)
[2020-02-28] MEDS: Ascorbic Acid 500 MG Tab PO SCH ×2 (14:17→21:00)
[2020-02-28] MEDS: Apixaban 2.5 MG Tab PO SCH ×2 (14:18→21:00)
[2020-02-28] MEDS: Beta-Carotene (Vitamin A) w/Vitamin C & E plus Minerals Tab PO SCH (14:18)
[2020-02-28] MEDS: Cholecalciferol (Vitamin D3) 25 MCG Tab PO SCH (14:18)
[2020-02-28] MEDS: Memantine 10 MG Tab PO SCH ×2 (14:18→21:00)
[2020-02-28] MEDS: Polyethylene Glycol 3350 Powder 17 GM Packet PO SCH (14:19)
--- NOTE | 2020-02-28 16:38 | PN ---
Progress Note for EMILIO BRITT Date: 02/28/2020 Room #: VM.209 SUBJECTIVE: This is hospital day #4 on a 54-year-old admitted with a COVID-19 infection. His symptoms started at least by 02/18/2020. He was started on dexamethasone, but official positive was on 02/20/2020. He continues to require just 5 L of oxygen, but this morning, he is quite tachypneic and tachycardic. He had stopped his D5W yesterday, but got 500 of cooled LR due to fever. During the night, his temp was only around 100 at 2 a.m., on next check at 6 a.m. it was 103.8. He did get Tylenol, but it is still over 100. Cooling measures with ice packs in the groin, neck, and axilla were initiated. He does not seem to be in any pain, but he is less responsive, but he is making good eye contact. He is drinking some fluids. He is coughing and choking a little with that. He has more crackles today. His x-ray yesterday did not show any pneumonia. His urine output has improved through the Mena. He did eat 100% of his lunch yesterday. OBJECTIVE: Vital Signs: His temperature currently on rounding 100.6, pulse 141, blood pressure 93/48, respiratory rate 36, and O2 of 93% on 5 L. General: He is in no acute distress. He is mildly less responsive than before, but his eyes are wide open. He is following us, making eye contact, just not speaking. Heart: Regular rate and rhythm. Tachycardia. Lungs: Lung sounds are decreased with crackles noted, worse in the left base, right base also with crackles. Abdomen: Nondistended. Positive bowel sounds. Nontender. His Mena is in place with some dark urine. Extremities: Dry. Quite warm. Good perfusion. No edema. Mental Status: He is not answering any mental status questions. LABORATORY DATA: Lab work today does show his white count up to 14.8, hemoglobin 15.5, platelets 153. Sodium 153, potassium 3.7, chloride 118, bicarb 23, BUN 49, creatinine up to 1.6, glucose 151, lactic 2.7, calcium 9.1, ferritin up to 3418. AST 173, ALT 58, alkaline phosphatase 33, LDH up to 641, albumin 2.6. UA showed 20 to 30 of blood, 0 to 5 wbc's. ASSESSMENT: 1. COVID-19 infection, now day #9, but with continued fevers. The patient is not really coughing or having that many respiratory symptoms. No diarrhea. Due to elevated LFTs, we will stop the remdesivir. I will continue the oral dexamethasone, last dose tonight. Due to the severe fevers, I will start him on cooled lactated Ringer's and give him 40 mg of Solu-Medrol. Currently, he cannot have any Toradol due to renal insufficiency. We will continue Tylenol as well. 2. Hypernatremia, improved down to 153, we are at the same as yesterday. Okay to not aggressively treat this since we had improvement from 161 within the first 24 hours. We will give him LR to replace fluid losses from the fever, continue with DDAVP and repeat tomorrow. 3. Lactic acidosis that has actually slightly improved. We will continue to monitor. We will start him on IV clindamycin in the thoughts that he could have an aspiration pneumonia. 4. Acute hypoxic respiratory failure secondary to COVID-19 infection. Continue supportive oxygen. He remains on 5 L. 5. History of traumatic brain injury with diabetes insipidus. Continue home medications. 6. DVT prophylaxis. He is already fully anticoagulated. He has not had any bleeding problems other than some blood in his urine. 7. Acute renal failure. Creatinine back to 1.6. We will monitor closely. 8. Elevated LFTs, probably due to viral illness and medications. We have stopped remdesivir. 9. Microscopic hematuria. We will continue to monitor. 10.Aspiration pneumonia. We will repeat a procalcitonin and restart antibiotics with clindamycin. He did initially get Rocephin and azithromycin. PLAN: The patient will continue acute cares. We will restart him on cooled lactated Ringer's. We will continue the vitamins. We will repeat lab work tomorrow. We will start him on clindamycin. We will aggressively treat fevers with ice packs and Tylenol. We will also add IV Rocephin to cover other gram- negatives for pneumonia as well. The patient's sister will be updated later today. Continue current cares. He does have nebulizers available if needed as well. MARISOLA: 02/28/2020 16:04:56 MODL: 02/28/2020 16:34:32 /[id number]
[2020-02-28] MEDS: Docusate Sodium 100 MG Cap PO SCH (20:59)
[2020-02-28] MEDS: Melatonin 3 MG Tab PO SCH (21:00)
[2020-02-28] MEDS: atorvaSTATin 40 MG Tab PO SCH (21:00)
[2020-02-29] MEDS: Clindamycin Phosphate in D5W 600 MG in Premix Bag 1 BAG IV SCH ×6 (00:22→16:45)
[2020-02-29] MEDS: Albuterol/Ipratropium 3.0-0.5 MG/3 ML Neb Soln INH PRN ×2 (00:28→11:51)
[2020-02-29] MEDS: Lactated Ringers 1,000 ML IV SCH ×5 (05:55→23:52)
[2020-02-29] MEDS: Acetaminophen 500 MG Tab PO PRN ×4 (05:59→23:58)
[2020-02-29] MEDS ORDERED: methylPREDNISolone Sodium Succinate 40 MG/1 ML SDV IVPUSH ONE ×3 (08:06→18:44)
[2020-02-29 08:32] LABS: ANION GAP 14.5 mmol/L (10-20)
[2020-02-29] MEDS ORDERED: Glucagon,Human Recombinant 1 MG Vial IM PRN (08:38)
[2020-02-29] MEDS ORDERED: 50% Dextrose in Water 50 ML Syringe IV PRN (08:38)
[2020-02-29] MEDS ORDERED: Hydrochlorothiazide 25 MG Tab PO ONE ×2 (08:39→11:30)
[2020-02-29] MEDS: Desmopressin 0.2 MG Tab PO SCH (09:20)
[2020-02-29] MEDS: cefTRIAXone 1 GM Vial IVPUSH SCH (09:20)
[2020-02-29] MEDS: Memantine 10 MG Tab PO SCH ×2 (09:20→19:45)
[2020-02-29] MEDS: Zinc (Zinc Gluconate) 50 MG Tab PO SCH (09:20)
[2020-02-29] MEDS: Cholecalciferol (Vitamin D3) 25 MCG Tab PO SCH (09:30)
[2020-02-29] MEDS: Apixaban 2.5 MG Tab PO SCH ×2 (11:06→19:44)
[2020-02-29] MEDS: Beta-Carotene (Vitamin A) w/Vitamin C & E plus Minerals Tab PO SCH (11:07)
[2020-02-29] MEDS: Polyethylene Glycol 3350 Powder 17 GM Packet PO SCH (11:07)
[2020-02-29] MEDS: Ascorbic Acid 500 MG Tab PO SCH ×2 (11:07→19:44)
[2020-02-29] MEDS: Sodium Chloride 0.9% 10 ML Syringe FLUSH PRN (11:10)
[2020-02-29] MEDS: Insulin Glarg,Human.Rec.Analog 100 Unit/ML SUBCUT SCH (11:18)
[2020-02-29] MEDS ORDERED: Lactated Ringers 500 ML IV SCH (19:00)
[2020-02-29] MEDS ORDERED: Desmopressin 0.2 MG Tab PO SCH (19:00)
--- NOTE | 2020-02-29 19:34 | PN ---
Progress Note for EMILIO BRITT Date: 02/29/2020 Room #: VM.209 SUBJECTIVE: This is hospital day #5, and COVID-19 day #12 based on symptoms but day #10 based on positive test. He continues to spike fevers. Yesterday, he had a good day after his fever broke. He did eat 100% of his lunch. Unfortunately, his temperature went up 101 to 102 during the night despite Tylenol. This morning, on Solu-Medrol and ice packs. He continues to have fevers. This dictation was actually postponed due to down time for the computer. At 2:00 p.m., he was 102; at 6:00 p.m., he is still 101.9. The patient is very tachycardic with higher fevers. He has not had much for intake today, about 200 of fluids. In fact this morning, I got him to drink some thickened juice, very small amounts, and he coughed and despite sitting up greater than 45 degrees. He wanted to drink more, but did not feel it was safe for him to do so. Otherwise, he can have free water. Otherwise, he deny any pain. He was less responsive than yesterday, but still making eye contact. Otherwise, the patient has not had any diarrhea. OBJECTIVE: Vital Signs: His weight is 90.7 kg, temperature 101.9, pulse 142, respiratory rate 32, and O2 of 92 on 4 L. General: He is in no acute distress. He is flushed. His skin is warm. Heart: Regular rate and rhythm with tachycardia. Lungs: Sounds are decreased with crackles in both bases. Abdomen: Positive bowel sounds. Soft, nondistended, and nontender. Extremities: Warm, wet, and moist throughout. His toes are cool, but they are not covered by any blanket. He does have padding on both heels. I had seen a pressure blister there on the left heel yesterday, a small one also on the right heel. Mental Status: He did not answer orientation questions, but did say yes when asked if he wanted something to drink. LABORATORY DATA: Lab work does show him to have a white count down to 12.1, hemoglobin 13.7, and platelets 70. Sodium 152, potassium 4.5, chloride 118, bicarb 24, BUN 64, creatinine 1.8, glucose 223, lactic 4.2, calcium 7.5, ferritin 8778 up from 3418, bilirubin 0.6, AST 298, ALT 98, alkaline phosphatase 28, and LDH 97. CRP was normal yesterday. Albumin 2.2. ASSESSMENT AND PLAN: 1. COVID-19 infection with prolonged fevers, which I believe is leading to dehydration and acute renal failure. We had stopped remdesivir due to elevated LFTs. He is day #9. He is on lactated Ringer's. We will give him IV Solu-Medrol to help with fevers since Tylenol has been insufficient. We will continue with ice packs. I did also update his family; his sister, Gloria. We will update the 2 brothers. I did tell her that he potentially could of this illness, and I advised them to come in under compassionate cares. They will try to do that this evening. 2. Hypernatremia, improving. He is on his DDAVP. Sodium is down to 152. Due to the need for fluid replacement, I will continue the LR and hold off on half-normal saline at this point. 3. Acute renal failure, likely due to the COVID-19 and dehydration with increasing BUN. I am going to go ahead and give him another 500 mL bolus of cooled LR. 4. Thrombocytopenia. This is new, possibly due to worsening illness and sepsis and increasing lactic. We will continue to monitor. He is not having any acute bleeding. 5. Lactic acidosis. He is already on antibiotics. He is on day #2 IV Rocephin and clindamycin. 6. Acute hypoxic respiratory failure secondary to COVID-19. He is on supplemental oxygen. It has actually been turned down from 5 to 4 L. We have been cautious with the fluids due to concern for respiratory worsening. However, given the current worsening of his kidney status and increasing lactic, we will increase his fluids to 175 an hour plus his bolus. 7. History of traumatic brain injury and diabetes insipidus. He is on DDAVP. 8. Deep venous thrombosis prophylaxis. He is on his therapeutic anticoagulation. 9. Elevated LFTs, probably due to COVID, slight worsening. We will continue to monitor. 10.Microscopic hematuria. The patient actually has dark urine and creatinine up to 1.8. We will continue to monitor. 11.Aspiration pneumonia. His repeat procalcitonin was just slightly elevated up to 2.29. We will continue with the IV antibiotics and see if that helps the fever. It did improve slightly from yesterday. PLAN: The patient will continue on acute cares. His family will come in and see him under possible end of life compassionate cares. He may still get better and they are aware of that, but he also could further decompensate. We will continue all his vitamins. We will get his lab work tomorrow. I will start him on 5 units daily of insulin due to the hyperglycemia due to the steroids. He also has nebulizers available for his respiratory status. Hospitalization prolonged due to the COVID 19 pandemic and patient can continue to receive treatments here. MKA: 02/29/2020 18:57:49 MODL: 02/29/2020 19:27:42 /[id number] MTDGiulia
[2020-02-29] MEDS: Melatonin 3 MG Tab PO SCH (19:44)
[2020-02-29] MEDS: atorvaSTATin 40 MG Tab PO SCH (19:44)
[2020-02-29] MEDS: Docusate Sodium 100 MG Cap PO SCH (19:44)
[2020-03-01] MEDS: Lactated Ringers 1,000 ML IV SCH (05:43)
[2020-03-01] MEDS: Acetaminophen 500 MG Tab PO PRN (05:45)
[2020-03-01] MEDS: Albuterol/Ipratropium 3.0-0.5 MG/3 ML Neb Soln INH PRN (06:27)
[2020-03-01] MEDS: Polyethylene Glycol 3350 Powder 17 GM Packet PO SCH ×2 (08:19→09:53)
[2020-03-01] MEDS: Zinc (Zinc Gluconate) 50 MG Tab PO SCH (08:19)
[2020-03-01] MEDS: Beta-Carotene (Vitamin A) w/Vitamin C & E plus Minerals Tab PO SCH ×2 (08:19→09:54)
[2020-03-01] MEDS: Desmopressin 0.2 MG Tab PO SCH ×2 (08:19→09:53)
[2020-03-01] MEDS: Ascorbic Acid 500 MG Tab PO SCH (08:19)
[2020-03-01] MEDS: Apixaban 2.5 MG Tab PO SCH ×2 (08:19→09:53)
[2020-03-01] MEDS: Memantine 10 MG Tab PO SCH ×2 (08:20→09:54)
[2020-03-01] MEDS: Cholecalciferol (Vitamin D3) 25 MCG Tab PO SCH (08:20)
[2020-03-01] MEDS: cefTRIAXone 1 GM Vial IVPUSH SCH (08:20)
[2020-03-01] MEDS: Clindamycin Phosphate in D5W 600 MG in Premix Bag 1 BAG IV SCH ×4 (08:30)
[2020-03-01 08:32] VITALS: BP 82/52; PULSE 153
[2020-03-01] MEDS: Insulin Glarg,Human.Rec.Analog 100 Unit/ML SUBCUT SCH (08:35)
[2020-03-01] MEDS ORDERED: Morphine 2 MG/ML SYRINGE IVPUSH PRN (09:17)
[2020-03-01] MEDS ORDERED: Ondansetron 4 MG/2 ML SDV IVPUSH PRN (09:18)
[2020-03-01] MEDS ORDERED: Atropine 1% Ophth Soln 5 ML BOTTLE SL PRN (09:18)
[2020-03-01] MEDS ORDERED: Morphine 4 MG/ML Syringe IVPUSH PRN (10:48)
[2020-03-01] MEDS ORDERED: Acetaminophen 500 MG Tab PRN (11:06)
[2020-03-01] MEDS ORDERED: Acetaminophen 650 MG Supp RECTAL PRN (11:07)
--- NOTE | 2020-03-01 12:15 | PN ---
Progress Note for EMILIO BRITT Date: 03/01/2020 Room #: VM.209 SUBJECTIVE: This is hospital day #6 for a 54-year-old admitted with a COVID-19 infection, day #13 based on symptoms, day #11 from his positive test. He had a poor day yesterday with fevers most of the day despite getting IV LR and even cool boluses and Tylenol and Solu-Medrol. He had 0 intake on meals, some intake of thickened juice, but then he was coughing. He has already been on IV antibiotics with clindamycin, day 3, and Rocephin. His O2 saturations overnight did drop down into as low as 30% range, probably likely this is due because he is not perfusing as he is mottling. His extremities are cool. He continued on his 5 L. His heart rate, which had been in the 140s, had dropped down into the 50s this morning. His temperature remains 100.5 at the time of my rounds. He does not appear to be in any distress other than respiratory. He is having tachypnea, shallow respirations into the 30s. His mental status; he is alert, making some eye contact, but he is not even answering yes or no like he has been the past few days. Family was updated last evening and several of them did come in to visit. OBJECTIVE: Vital Signs: His temperature 100.5, T-max 101.5 last evening around midnight. His pulse currently 42, had been as high as 153 this morning. Blood pressure 82/52, respiratory rate 34, O2 of 78 on 5 L. General: He is in no acute distress other than his respiratory increased work of breathing. Heart: Regular rate and rhythm. Lungs: Sounds decreased with rhonchi throughout. No wheezing appreciated. Abdomen: Positive bowel sounds. Soft, nondistended, nontender. Extremities: Cool distally with mottling, but warm still at the thigh. Skin: Does have padding over the ankles. He had some intact blisters there. Neurologic: Otherwise mental status, he is not able to answer orientation questions. LABORATORY DATA: Lab work shows white count 19.1, hemoglobin 14.8, platelets 78. Sodium 152, potassium 5, chloride 115, bicarb 22, BUN 97, creatinine 3.7, glucose 218, lactic 5.9, calcium 7.5. Ferritin 18,000. Bilirubin 0.6, AST 537, ALT 102, alkaline phosphatase 56. CK 15,000. CRP is 0.4. Albumin 2.3. ASSESSMENT AND PLAN: 1. Severe COVID-19 infection, day #13 based on symptoms with continued fevers, now with worsening respiratory failure due to fluid resuscitation. Discussed with his sister, Charisse, and family will come in to see him. I think that he will pass soon. He will be started on morphine for his respiratory distress for comfort cares. 2. Hypernatremia. This has remained stable. He had received his DDAVP, but was unable to take medications this morning. 3. Acute renal failure due to COVID-19 and rhabdomyolysis. This is possibly worsened by getting the Lipitor for his COVID-19 as well as remdesivir, which has already been stopped. He has a Mena in place. He has dark urine. We will stop IV fluids. Goals of care are comfort. 4. Lactic acidosis. This is likely due to septic shock and hypovolemic shock and respiratory shock in the setting of COVID-19. We will continue supportive oxygen for comfort. 5. Thrombocytopenia due to his illness. Platelets have remained similar to yesterday. 6. Acute hypoxic respiratory failure secondary to the COVID-19. Due to goals of care being comfort, we will not repeat a chest x-ray. I have stopped his IV fluids. 7. History of traumatic brain injury and diabetes insipidus. 8. Deep venous thrombosis prophylaxis. He had been therapeutic on his Eliquis. Unfortunately, he had some bleeding from his mouth today and decision has been made to stop all oral medications and pursue comfort measures. 9. Microscopic hematuria, now with dark urine due to the rhabdo. 10.Elevated LFTs, probably due to COVID and medications. No further monitoring indicated. 11.Aspiration pneumonia. He is on IV antibiotics, but his respiratory status and white count are worsening. We will stop ABX. PLAN: The patient will switch over to comfort cares. We will order morphine. He already received 2 mg IV. He is having some apnea spells already per family, but when I went back in there, he was still having increased work of breathing, so I increased to 4 mg moprhine every 2 hours if needed. We will stop all his oral medications. We will order medications for secretions. We will turn and reposition. Otherwise, I do expect the patient to probably sometime today from his critical illness. MKA: 03/01/2020 11:02:31 MODL: 03/01/2020 12:08:03 /[id number] MTDD
--- NOTE | 2020-03-08 21:37 | PCM.DCSUM1 ---
Discharge Summary - Hospital Course Free Text/Narrative:: Patient admitted for COVID 19 and of complications from that including respiratory and renal failure. See detailed progress note from today. - Discharge Data Discharge Date: 03/01/20 Discharge Disposition: 20 Condition: - Referral to Home Health Primary Care Physician: Becky Lauren, DO - Discharge Diagnosis/Problem(s) (1) ARIANNA (acute kidney injury) SNOMED Code(s): 41847412, 41310356 ICD Code: N17.9 - ACUTE KIDNEY FAILURE, UNSPECIFIED Status: Acute Priority: High (2) COVID-19 SNOMED Code(s): 468094908 ICD Code: U07.1 - COVID-19 Status: Acute Priority: High (3) Dehydration SNOMED Code(s): 27983442 ICD Code: E86.0 - DEHYDRATION Status: Acute Priority: High (4) Hypernatremia SNOMED Code(s): 984290681 ICD Code: E87.0 - HYPEROSMOLALITY AND HYPERNATREMIA Status: Acute Priority: High (5) Hypoxia SNOMED Code(s): 964653831 ICD Code: R09.02 - HYPOXEMIA Status: Acute Priority: High (6) Pneumonia SNOMED Code(s): 369454507 ICD Code: J18.9 - PNEUMONIA, UNSPECIFIED ORGANISM Status: Acute Priority: High Qualifiers: Pneumonia type: due to unspecified organism Laterality: right Lung location: unspecified part of lung Qualified Code(s): J18.9 - Pneumonia, unspecified organism (7) Diabetes insipidus SNOMED Code(s): 48746019 ICD Code: E23.2 - DIABETES INSIPIDUS Status: Chronic (8) Traumatic brain injury SNOMED Code(s): 198764296 ICD Code: S06.9X9A - UNSP INTRACRANIAL INJURY W LOC OF UNSP DURATION, INIT Status: Chronic Priority: Medium - Discharge Plan Home Medications: Home Meds Beta-Carotene(A) w/C & E/Min [Prosight] 1 tab PO DAILY 09/14/13 [History] Desmopressin 0.3 mg PO DAILY 09/14/13 [History] Desmopressin 0.7 tab PO BEDTIME 09/14/13 [History] Docusate Sodium [Colace] 2 tab PO BEDTIME 06/07/14 [History] Melatonin 5 mg PO BEDTIME 09/14/13 [History] bisacodyL [Dulcolax] 5 mg PO DAILY PRN 04/12/14 [History] Bisacodyl [Dulcolax] 10 mg RECTAL DAILY PRN 03/16/16 [History] Memantine HCl [Namenda Xr] 28 mg PO DAILY 03/16/16 [History] Acetaminophen 650 mg PO Q4H PRN 02/25/20 [History] Albuterol/Ipratropium [DuoNeb 3.0-0.5 MG/3 ML] 3 ml INH Q3H PRN 02/25/20 [History] Apixaban [Eliquis] 1 tab PO BID 02/25/20 [History] Ascorbic Acid [Vitamin C] 1,000 mg PO BID 02/25/20 [History] Cholecalciferol (Vitamin D3) [Vitamin D] 1,000 unit PO DAILY 02/25/20 [History] dexAMETHasone [Dexamethasone] 6 mg PO DAILY 02/25/20 [History] polyethylene glycoL 3350 [MiraLAX] 17 gm PO DAILY 02/25/20 [History] Forms: ED Department Discharge Referrals: Becky Lauren DO [Primary Care Provider] - - Discharge Summary/Plan Comment DC Time >30 min.: No - Patient Data Vitals - Most Recent: Last Vital Signs Temp 100.5 F 03/01/20 08:31 Pulse 153 H 03/01/20 08:31 Resp 22 H 03/01/20 08:31 BP 82/52 L 03/01/20 08:31 Pulse Ox 71 L 03/01/20 10:00 Weight - Most Recent: 93.576 kg Med Orders - Current: Current Medications Discontinued Medications Acetaminophen (Tylenol) 650 mg PO Q4H PRN PRN Reason: Pain (Mild 1-3)/fever Last Admin: 02/27/20 14:22 Dose: 650 mg Documented by: Acetaminophen (Tylenol) 1,000 mg PO Q6H PRN PRN Reason: Pain (Mild 1-3)/fever Last Admin: 02/28/20 06:24 Dose: 1,000 mg Documented by: Acetaminophen (Tylenol Extra Strength) 1,000 mg PO Q6H PRN PRN Reason: Pain (Mild 1-3)/fever Last Admin: 03/01/20 05:45 Dose: 1,000 mg Documented by: Acetaminophen (Tylenol Extra Strength) 1,000 mg .XX Q6H PRN PRN Reason: Pain (Mild 1-3)/fever Acetaminophen (Tylenol) 650 mg RECTAL Q6H PRN PRN Reason: Pain/Fever Albuterol/Ipratropium (Duoneb 3.0-0.5 Mg/3 Ml) 3 ml NEB Q4H PRN PRN Reason: dyspnea/wheezing Last Admin: 02/26/20 02:44 Dose: 3 ml Documented by: Albuterol/Ipratropium (Duoneb 3.0-0.5 Mg/3 Ml) 3 ml INH Q3H PRN PRN Reason: Shortness of Breath Last Admin: 03/01/20 06:27 Dose: 3 ml Documented by: Apixaban (Eliquis) 2.5 mg PO BID [facility] Last Admin: 03/01/20 09:53 Dose: Not Given Documented by: Ascorbic Acid (Vitamin C) 1,000 mg PO BID [facility] Last Admin: 03/01/20 08:19 Dose: 1,000 mg Documented by: Atorvastatin Calcium (Lipitor) 40 mg PO BEDTIME [facility] Last Admin: 02/29/20 19:44 Dose: 40 mg Documented by: Atropine Sulfate (Atropine 1% Oph Sol) 0 ml SL Q2H PRN PRN Reason: Copius Secretions Bisacodyl (Dulcolax) 5 mg PO DAILY PRN PRN Reason: Constipation Last Admin: 02/27/20 15:54 Dose: 5 mg Documented by: Bisacodyl (Dulcolax) 10 mg RECTAL DAILY PRN PRN Reason: Constipation Ceftriaxone Sodium (Rocephin) 2 gm IVPUSH STAT ONE Stop: 02/25/20 18:45 Last Admin: 02/25/20 19:14 Dose: 2 gm Documented by: Ceftriaxone Sodium (Rocephin) 1 gm IVPUSH Q24H [facility] Ceftriaxone Sodium (Rocephin) 1 gm IVPUSH DAILY [facility] Last Admin: 03/01/20 08:20 Dose: 1 gm Documented by: Cholecalciferol (Vitamin D3) 100 mcg PO DAILY [facility] Last Admin: 02/26/20 09:34 Dose: 100 mcg Documented by: Cholecalciferol (Vitamin D3) 50 mcg PO DAILY [facility] Last Admin: 03/01/20 08:20 Dose: 50 mcg Documented by: Desmopressin Acetate (Desmopressin) 0.3 mg PO DAILY [facility] Last Admin: 03/01/20 09:53 Dose: Not Given Documented by: Desmopressin Acetate (Desmopressin) 0.7 mg PO BEDTIME [facility] Last Admin: 02/28/20 21:00 Dose: 0.7 mg Documented by: Desmopressin Acetate (Desmopressin) 0.2 mg PO ONETIME ONE Stop: 02/26/20 16:12 Last Admin: 02/26/20 17:30 Dose: 0.2 mg Documented by: Desmopressin Acetate (Desmopressin) 0.7 mg PO 1900 [facility] Last Admin: 02/29/20 19:45 Dose: 0.7 mg Documented by: Dexamethasone 2 mg/ (Dexamethasone 4 mg) 6 mg PO DAILY [facility] Stop: 02/28/20 23:00 Last Admin: 02/28/20 14:17 Dose: 6 mg Documented by: Dextrose/Water (Dextrose 50% In Water) 50 ml IV ASDIRECTED PRN PRN Reason: Hypoglycemia Docusate Sodium (Colace) 200 mg PO BEDTIME [facility] Last Admin: 02/29/20 19:44 Dose: 200 mg Documented by: Glucagon (Glucagen) 1 mg IM ASDIRECTED PRN PRN Reason: Hypoglycemia Hydrochlorothiazide (Hydrochlorothiazide) 25 mg PO ONETIME ONE Stop: 02/29/20 08:40 Last Admin: 02/29/20 11:21 Dose: 25 mg Documented by: Hydrochlorothiazide (Hydrochlorothiazide) 25 mg PO ONETIME ONE Stop: 02/29/20 11:31 Last Admin: 02/29/20 11:22 Dose: 25 mg Documented by: Azithromycin 500 mg/ Sodium (Chloride) 250 mls @ 250 mls/hr IV STAT ONE Stop: 02/25/20 19:44 Last Admin: 02/25/20 19:14 Dose: 250 mls/hr Documented by: Sodium Chloride (Normal Saline) 1,000 mls @ 1,000 mls/hr IV .BOLUS ONE Stop: 02/25/20 20:06 Last Admin: 02/25/20 17:50 Dose: 1,000 mls/hr Documented by: Lactated Ringer's (Ringers, Lactated) 1,000 mls @ 150 mls/hr IV ASDIRECTED [facility] Last Admin: 02/26/20 04:38 Dose: 150 mls/hr Documented by: Remdesivir 200 mg/ Sodium (Chloride) 250 mls @ 250 mls/hr IV ONETIME ONE Stop: 02/25/20 22:59 Last Admin: 02/25/20 23:44 Dose: 250 mls/hr Documented by: Remdesivir 100 mg/ Sodium (Chloride) 100 mls @ 100 mls/hr IV Q24H [facility] Stop: 02/29/20 22:59 Last Admin: 02/27/20 21:50 Dose: 100 mls/hr Documented by: Azithromycin 500 mg/ Sodium (Chloride) 250 mls @ 250 mls/hr IV Q24H [facility] Remdesivir 100 mg/ Sodium (Chloride) 250 mls @ 250 mls/hr IV ONETIME ONE Stop: 02/26/20 00:44 Last Admin: 02/26/20 00:05 Dose: Not Given Documented by: Dextrose/Water (Dextrose 5% In Water) 1,000 mls @ [facility] Last Admin: 02/27/20 03:35 Dose: 150 mls/hr Documented by: Lactated Ringer's (Ringers, Lactated) 500 mls @ 500 mls/hr IV ONETIME ONE Stop: 02/26/20 15:59 Last Admin: 02/26/20 15:50 Dose: 500 mls/hr Documented by: Lactated Ringer's (Ringers, Lactated) 500 mls @ 500 mls/hr IV ONETIME ONE Stop: 02/27/20 16:07 Last Admin: 02/27/20 15:55 Dose: 500 mls/hr Documented by: Clindamycin Phosphate 600 mg/ (Premix) 50 mls @ 150 mls/hr IV Q8H [facility] Last Admin: 03/01/20 08:30 Dose: 150 mls/hr Documented by: Lactated Ringer's (Ringers, Lactated) 1,000 mls @ 175 mls/hr IV ASDIRECTED [facility] Last Admin: 03/01/20 05:43 Dose: 150 mls/hr Documented by: Lactated Ringer's (Ringers, Lactated) 500 mls @ [facility] Last Admin: 02/29/20 19:42 Dose: 500 mls/hr Documented by: Insulin Glargine (Lantus) 5 unit SUBCUT DAILY [facility] Last Admin: 03/01/20 08:35 Dose: 5 units Documented by: Ketorolac Tromethamine (Toradol) 30 mg IVPUSH ONETIME ONE Stop: 02/26/20 06:26 Last Admin: 02/26/20 07:34 Dose: 30 mg Documented by: Melatonin (Melatonin) 6 mg PO BEDTIME [facility] Last Admin: 02/29/20 19:44 Dose: 6 mg Documented by: Memantine (Namenda) 10 mg PO BID [facility] Last Admin: 03/01/20 09:54 Dose: Not Given Documented by: Methylprednisolone Sodium Succinate (Solu-Medrol) 40 mg IVPUSH ONETIME ONE Stop: 02/28/20 08:44 Last Admin: 02/28/20 09:40 Dose: 40 mg Documented by: Methylprednisolone Sodium Succinate (Solu-Medrol) 40 mg IVPUSH ONETIME ONE Stop: 02/29/20 08:07 Last Admin: 02/29/20 11:21 Dose: 40 mg Documented by: Methylprednisolone Sodium Succinate (Solu-Medrol) 40 mg IVPUSH ONETIME ONE Stop: 02/29/20 11:31 Last Admin: 02/29/20 11:22 Dose: 40 mg Documented by: Methylprednisolone Sodium Succinate (Solu-Medrol) 40 mg IVPUSH ONETIME ONE Stop: 02/29/20 18:45 Last Admin: 02/29/20 19:44 Dose: 40 mg Documented by: Morphine Sulfate (Morphine) 2 mg IVPUSH Q2H PRN PRN Reason: Other Last Admin: 03/01/20 09:44 Dose: 2 mg Documented by: Morphine Sulfate (Morphine) 4 mg IVPUSH Q2H PRN PRN Reason: Other Multivitamins/Minerals (Prosight) 1 tab PO DAILY [facility] Last Admin: 03/01/20 09:54 Dose: Not Given Documented by: Ondansetron HCl (Zofran) 4 mg IVPUSH Q4H PRN PRN Reason: Nausea Polyethylene Glycol (Miralax) 17 gm PO DAILY [facility] Last Admin: 03/01/20 09:53 Dose: Not Given Documented by: Potassium Chloride (Klor-Con 10) 20 meq PO ONETIME ONE Stop: 02/26/20 13:24 Last Admin: 02/26/20 14:03 Dose: 20 meq Documented by: Potassium Chloride (Klor-Con 10) 20 meq PO ONETIME ONE Stop: 02/27/20 15:14 Last Admin: 02/27/20 15:54 Dose: 20 meq Documented by: Sodium Chloride (Saline Flush) 10 ml FLUSH ASDIRECTED PRN PRN Reason: Keep Vein Open Last Admin: 02/29/20 11:10 Dose: 10 ml Documented by: Zinc Gluconate (Zinc) 50 mg PO DAILY [facility] Last Admin: 02/26/20 09:36 Dose: 50 mg Documented by: Zinc Gluconate (Zinc) 200 mg PO DAILY [facility] Last Admin: 03/01/20 08:19 Dose: 200 mg Documented by:
== END 2020-03-01 13:10 | disposition expired | DRG 871 ==
LOC: VM.ED 17:40 → VM.MS 19:14 → OBSVTOIN 02-26 13:20 → VM.MS 02-26 14:33
PROVIDERS: ADMIT Internal Medicine; ATTEND Internal Medicine
PROC: XW033E5 Introduction of Remdesivir Anti-infective into Peripheral Vein, Percutaneous Approach, New Technology Group 5 (ICD-10-PCS; principal; 2020-02-27)
DX: A41.9 Sepsis, unspecified organism (principal); U07.1 COVID-19; J18.9 Pneumonia, unspecified organism; J96.01 Acute respiratory failure with hypoxia; J69.0 Pneumonitis due to inhalation of food and vomit; R65.21 Severe sepsis with septic shock; N17.9 Acute kidney failure, unspecified; Z87.01 Personal history of pneumonia (recurrent); E87.0 Hyperosmolality and hypernatremia; G81.94 Hemiplegia, unspecified affecting left nondominant side; E23.2 Diabetes insipidus; Z51.5 Encounter for palliative care; E86.0 Dehydration; F32.9 Major depressive disorder, single episode, unspecified; F03.90 Unspecified dementia, unspecified severity, without behavioral disturbance, psychotic disturbance, mood disturbance, and anxiety; G47.9 Sleep disorder, unspecified; R79.89 Other specified abnormal findings of blood chemistry; R31.29 Other microscopic hematuria; R57.1 Hypovolemic shock; D69.6 Thrombocytopenia, unspecified; J32.9 Chronic sinusitis, unspecified; H47.20 Unspecified optic atrophy; J34.2 Deviated nasal septum; R32 Unspecified urinary incontinence; G31.84 Mild cognitive impairment of uncertain or unknown etiology; E66.9 Obesity, unspecified; Z87.820 Personal history of traumatic brain injury; Z86.718 Personal history of other venous thrombosis and embolism; Z79.01 Long term (current) use of anticoagulants; Z99.81 Dependence on supplemental oxygen; Z88.0 Allergy status to penicillin; Z88.8 Allergy status to other drugs, medicaments and biological substances; Z79.899 Other long term (current) drug therapy; Z68.32 Body mass index [BMI] 32.0-32.9, adult; Z86.010 Personal history of colon polyps; R41.841 Cognitive communication deficit
CPT/HCPCS: 36415; 51702; 71045; 80053; 81001; 82550; 82728; 82962; 83605; 83615; 83735; 84145; 84295; 84443; 85025; 85610; 86140; 87040; 94640; 96365; 96367; 96374; 96375; 99220; 99285-25; A9270-GY; G0378; J0456; J0696; J1815-GY; J1885; J2270; J2920; J3490; J7030; J7050; J7060; J7120; J7620-GY; J8540